=== PATIENT | male | born 1995 | race Caucasian/White ===

== ENCOUNTER 2022-09-14 16:06 | Emergency (ER) | payer MEDICAID ==
[~2022-09-14] VITALS: Ht 170.2 cm; Wt 70.5 kg
[2022-09-14 16:11] VITALS: BP 141/70
[2022-09-14] MEDS ORDERED: LIDOCAINE 1% 10 ML VIAL ONE (16:19)
[2022-09-14] MEDS ORDERED: PERTUSS(ACELL),DIPH,TET VAC/PF 0.5 ML SYRINGE IM. ONE (16:30)
[2022-09-14] MEDS ORDERED: LIDOCAINE 1% 10 ML VIAL ID ONE (16:30)
== END 2022-09-14 16:45 | disposition home or self-care (01) ==
LOC: EMS 16:19
DX: S41.112A Laceration without foreign body of left upper arm, initial encounter (principal); F12.90 Cannabis use, unspecified, uncomplicated; F17.210 Nicotine dependence, cigarettes, uncomplicated; W18.39XA Other fall on same level, initial encounter; Y93.89 Activity, other specified; Y92.89 Other specified places as the place of occurrence of the external cause; Y99.8 Other external cause status
CPT/HCPCS: 99283; 90715; 90471; 12001; J3490

== ENCOUNTER 2023-06-28 13:40 | Emergency (ER) | payer MEDICAID ==
[~2023-06-28] VITALS: Ht 167.6 cm; Wt 76.0 kg
[~2023-06-28 13:40] MED LIST: CLOT15CR29 TP
[2023-06-28 13:43] VITALS: TEMP 98.5
[2023-06-28] MEDS ORDERED: BACITRACIN 0.9 GM PACKET OINTMENT TP ONE (16:15)
[2023-06-28] MEDS ORDERED: LIDOCAINE 1% 10 ML VIAL SQ ONE (16:15)
[2023-06-28 16:55] VITALS: BP 129/78; PULSE 80; RESP 16
== END 2023-06-28 17:13 | disposition home or self-care (01) ==
LOC: EMS 13:40
DX: S01.81XA Laceration without foreign body of other part of head, initial encounter (principal); F20.9 Schizophrenia, unspecified; F17.210 Nicotine dependence, cigarettes, uncomplicated; F12.90 Cannabis use, unspecified, uncomplicated; Z98.890 Other specified postprocedural states; W01.0XXA Fall on same level from slipping, tripping and stumbling without subsequent striking against object, initial encounter; Y93.B2 Activity, push-ups, pull-ups, sit-ups; Y92.89 Other specified places as the place of occurrence of the external cause; Y99.8 Other external cause status
CPT/HCPCS: 99282; 12011; J3490

== ENCOUNTER 2023-07-14 14:17 | Emergency (ER) | payer MEDICAID ==
[~2023-07-14] VITALS: Ht 167.6 cm; Wt 75.0 kg
[2023-07-14 14:22] VITALS: BP 140/73; PULSE 92; RESP 16; TEMP 98
== END 2023-07-14 14:55 | disposition home or self-care (01) ==
LOC: EMS 14:19
DX: S00.80XD Unspecified superficial injury of other part of head, subsequent encounter (principal); Z48.02 Encounter for removal of sutures; X58.XXXD Exposure to other specified factors, subsequent encounter
CPT/HCPCS: 99281; Z7502